=== PATIENT | male | born 1975 | race Caucasian/White ===

== ENCOUNTER 2020-01-22 02:05 | Emergency (ER) | payer SELFPAY ==
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
[2020-01-22] MEDS ORDERED: fentaNYL 100 MCG/2 ML SDV IVPUSH ONE ×2 (03:23→04:02)
[2020-01-22] MEDS ORDERED: Take Home: Acetaminophen/HYDROcodone 325-5 MG, 2 Tab Pack PO ONE (04:11)
[2020-01-22] MEDS: Take Home: Acetaminophen/oxyCODONE 325-5 MG, 2 Tab Pack PO ONE ×4 (04:28→04:45)
[2020-01-22] MEDS ORDERED: fentaNYL 100 MCG/2 ML SDV IVPUSH STA (04:42)
== END 2020-01-22 05:25 ==
LOC: CC.ED 02:05
DX: S93.04XA Dislocation of right ankle joint, initial encounter (principal); S82.831A Other fracture of upper and lower end of right fibula, initial encounter for closed fracture; I10 Essential (primary) hypertension; Z88.5 Allergy status to narcotic agent; Z79.899 Other long term (current) drug therapy; W51.XXXA Accidental striking against or bumped into by another person, initial encounter
CPT/HCPCS: 27840; 73610-RT; 96374; 96375; 96376; 99284-25; A9270-GY; J3010; J3360

== ENCOUNTER 2024-08-18 12:43 | Emergency (ER) | payer OTHER | END 2024-08-18 13:46 | disposition home or self-care (01) | LOC: CC.ED 12:43 | DX: S93.402A Sprain of unspecified ligament of left ankle, initial encounter (principal); I10 Essential (primary) hypertension; Z88.5 Allergy status to narcotic agent; Z79.899 Other long term (current) drug therapy; X50.1XXA Overexertion from prolonged static or awkward postures, initial encounter | CPT/HCPCS: 73610-LT; 99283 ==